=== PATIENT | female | born 1985 | race Caucasian/White ===

== ENCOUNTER 2022-08-30 10:20 | Outpatient (REF) | payer OTHER, SELFPAY ==
[2022-08-30 14:02] LABS: MANUAL DIFF FLAG NO
[2022-08-30 14:20] LABS: Basophils Absolute Auto 0.1 X10*3/uL (0.0-0.2); Basophils Percent Auto 0.8 % (0-2); Eosinophils Absolute Auto 0.4 X10*3/uL (0.0-0.4); Eosinophils Percent Auto 4.2 % (0-4); Hemoglobin 13.7 g/dl (12.0-16.0); Imm Gran Abs Auto 0.02 X10*3/uL (0.00-0.03); Imm Gran Pct Auto 0.2 % (0.0-0.4); Lymphocytes Absolute Auto 1.9 X10*3/uL (1.2-4.9); Lymphocytes Percent Auto 22.1 % (20-40); Mean Corpuscular HGB Conc 32.6 g/dl (31.0-35.0); Mean Corpuscular Hemoglobin 29.7 pg (27.0-33.0); Mean Corpuscular Volume 90.9 fL (80.0-98.0); Monocytes Absolute Auto 0.4 X10*3/uL (0.1-1.2); Monocytes Percent Auto 5.2 % (2-11); Neutrophils Absolute Auto 5.7 x10*3/uL (2.0-8.3); Neutrophils Percent Auto 67.5 % (45-73); Platelet Count 274 X10*3/uL (160-400); Red Blood Count 4.62 X10*6/uL (4.20-5.50); Red Cell Distribution Width 12.2 % (11.0-16.0); White Blood Count 8.4 X10*3/uL (4.8-10.8)
[2022-08-30 14:45] LABS: C Reactive Protein < 0.10 mg/dL (< or = 0.50); Iron 125 mcg/dL (30-160); Percent Iron Saturation 48 % (15-50); Rheumatoid Factor < 13.0 IU/mL (<15.0); Total Iron Binding Capacity 263 mcg/dL (228-428); Unsaturated Iron Binding 138 ug/dL
[2022-08-30 15:03] LABS: Ferritin 40 ng/mL (10-122); Folate 8.9 ng/mL (> or = 4.0); Vitamin B12 821 pg/mL (200-900)
[2022-09-04 13:19] LABS: Anti Nuclear Antibody Screen NEGATIVE (NEGATIVE)
[2022-09-06 10:55] LABS: Cyclic Citrullinated Peptide <16 UNITS
== END 2022-08-30 10:21 | disposition home or self-care (01) ==
LOC: HO.MANLDS 10:20
PROVIDERS: Visit Provider Internal Medicine
DX: M25.50 Pain in unspecified joint (principal); Z86.2 Personal history of diseases of the blood and blood-forming organs and certain disorders involving the immune mechanism
CPT/HCPCS: 36415; 82607; 82728; 82746; 83540; 85025; 86038; 86140; 86200; 86431